=== PATIENT | female | born 1935 | race Caucasian/White ===

== ENCOUNTER → 2017-02-15 | Outpatient (CLI) | payer OTHER, MEDICARE | LOC: RAD 01:26 | DX: Z12.31 Encounter for screening mammogram for malignant neoplasm of breast (principal) ==

== ENCOUNTER → 2017-07-06 | Outpatient (CLI) | payer OTHER, MEDICARE | LOC: MRI 07:48 | DX: M75.101 Unspecified rotator cuff tear or rupture of right shoulder, not specified as traumatic (principal) ==

== ENCOUNTER → 2018-03-17 | Outpatient (CLI) | payer OTHER, MEDICARE | LOC: RAD 11:05 | DX: Z12.31 Encounter for screening mammogram for malignant neoplasm of breast (principal) ==

== ENCOUNTER → 2018-03-31 | Outpatient (CLI) | payer OTHER, MEDICARE | LOC: MRI 06:04 | DX: G31.9 Degenerative disease of nervous system, unspecified (principal); R26.89 Other abnormalities of gait and mobility; R41.3 Other amnesia ==

== ENCOUNTER → 2018-04-22 | Outpatient (CLI) | payer OTHER, MEDICARE | LOC: MRI 08:21 | DX: M47.27 Other spondylosis with radiculopathy, lumbosacral region (principal); M48.062 Spinal stenosis, lumbar region with neurogenic claudication ==

== ENCOUNTER 2021-03-27 11:31 | Inpatient (IN) | payer OTHER, MEDICARE ==
[~2021-03-27] VITALS: Ht 165.1 cm; Wt 58.5 kg
[~2021-03-27 11:31] MED LIST: ASPIR 8181 MG PO; IBANDRONATE SO150 MG PO; SYNTHROID88 MCG PO; VESICARE10 M1 PO; VITAMIN D2000 UNIT PO
[2021-03-27 11:32] VITALS: BP 130/74
[2021-03-27 12:02] LABS: URINE BILIRUBIN NEGATIVE (Negative); URINE BLOOD 2+ (Negative); URINE CLARITY CLEAR; URINE COLOR YELLOW; URINE GLUCOSE-RANDOM* NEGATIVE (Negative); URINE KETONES NEGATIVE (Negative); URINE NITRITE-REFLEX NEGATIVE (Negative); URINE PROTEIN (DIPSTICK) TRACE (Negative); URINE SPECIFIC GRAVITY <= 1.005 (1.005-1.035); URINE UROBILINOGEN 0.2 E.U./dl (0.2-1.0)
[2021-03-27 12:03] LABS: URINE LEUKOCYTES-REFLEX 3+ (Negative)
--- NOTE | 2021-03-27 12:18 | EKG ---
[address] [place] [address] ELECTROCARDIOGRAM REPORT Name: VILLA REYES [id number] Admission: 03/27/21 Attend Phys: Discharge: Date of : 33 Report #: [id number] [facility] ED Test Date: 2021-03-27 Test Time: 12:02:15 Pat Name: VILLA REYES Department: Room: Gender: F Halal Butcher: LIANA : 1935 Requested By: Luis Reed Order Number: [id number] MD: Jesus Plata Measurements Intervals [address] Rate: 72 P: -89 ME: 145 QRS: 22 QRSD: 99 T: 30 QT: 353 QTc: 387 Interpretive Statements Sinus rhythm Compared to ECG 12/02/2004 09:17:10 Myocardial infarct finding no longer present Electronically Signed On 03-27-2021 12:18:16 CDT by Jesus Plata [email or web address] <ELECTRONICALLY SIGNED> By: Jesus Plata MD, [facility] 03/27/21 1218 1202 1202 Jesus Plata MD, FACC /EPI
[2021-03-27 12:20] LABS: SQUAMOUS 4-10 Moderate /LPF (0-3)
[2021-03-27 12:21] LABS: BACTERIA-REFLEX >30 Many /HPF (None Seen); URINE RBC 3-10 Few /HPF (NONE SEEN); URINE WBC-REFLEX >25 Many /HPF (0-5); WBC CLUMPS Few (None Seen)
[2021-03-27 12:22] LABS: CASTS None Seen /LPF (None Seen); CRYSTALS None Seen /LPF (None Seen)
[2021-03-27 12:23] LABS: ABSOLUTE NEUTROPHILS 9.6 thou/uL (1.4-8.2); BASOPHILS 0.4 % (0.0-2.0); EOSINOPHILS 0.1 % (0.0-3.0); HEMATOCRIT 34.4 % (37.0-47.0); HEMOGLOBIN 11.5 gm/dL (12.0-15.0); MCH 30.4 pg (26.0-34.0); MCHC 33.4 g/dL (28.0-37.0); MONOCYTES 11.9 % (1.0-8.0); PLATELET COUNT 137 thou/uL (150-400); POLYS 81.6 % (36.0-66.0); RBC 3.78 mil/uL (4.20-5.00); RDW 13.9 % (10.5-14.5); WBC 11.8 thou/uL (4.0-11.0)
[2021-03-27 12:30] LABS: ANION GAP 8 mmol/L (7-16); BUN 13 mg/dL (7-18); CALCIUM 8.2 mg/dL (8.5-10.1); CHLORIDE 93 mmol/L (98-107); CO2 28 mmol/L (21-32); CREATININE 0.9 mg/dL (0.6-1.0); GLUCOSE 99 mg/dL (74-106); POTASSIUM 3.9 mmol/L (3.5-5.1); SODIUM 129 mmol/L (136-145)
--- NOTE | 2021-03-27 12:31 | NUR ---
DR. SARAH DO'D CODE STROKE AT 12:30
[2021-03-27 12:38] LABS: APTT 31.9 Seconds (24.5-32.8); INR 1.06; PROTIME 11.5 Seconds (10.5-12.1)
[2021-03-27 12:40] LABS: SGOT 24 U/L (15-37); SGPT 19 U/L (30-65); TOTAL BILIRUBIN 1.5 mg/dL (0.2-1.0); TOTAL PROTEIN 6.3 g/dL (6.4-8.2); TROPONIN-I <0.06 ng/mL (<0.06)
[2021-03-27 14:00] VITALS: BP 112/61
[2021-03-27 14:12] VITALS: BP 101/53
[2021-03-27 14:53] VITALS: BP 102/49
[2021-03-27] MEDS ORDERED: LIPITOR 20 MG T20 M1 PO (14:53)
[2021-03-27] MEDS ORDERED: LEVO-T25 MCG PO (14:54)
--- NOTE | 2021-03-27 14:54 | NUR ---
ASSESSMENT: CM REVIEWED CHART AND MET WITH PATIENT AT THE BEDSIDE AND HER DAUGHTER FOZIA WHO LIVES WITH PT. PT WAS ADMITTED DUE TO UTI AND INCREASED CONFUSION. PT HAS HX OF DEMENTIA AND NORMALLY ALERT AND ORIENTED X3 BUT MORE CONFUSED THEN USUSAL. PTS PCP IS DR. SUNG. PT HAS ABOUT 2 STEPS TO ENTER THE HOME AND DAUGHTER REPORTS THERE IS A CASE THERE FOR HER TO HOLD ON TO. PT NORMALLY USES A CANE FOR AMBULATION BUTH A WALKER IF NEEDED. PT HAS NO GRAB BAR OR SHOWER CHAIR AND NORMALLY WAS INDEPENDENT WITH ADLS. PT HAS HAD HH IN THE PAST BUT UNSURE THE AGENCY. PT HAS NEVER BEEN TO A A SNF. DAUGHTER IS ABLETO RUN ERRANDS OR ASSIST PATIENT WHENEVER NEEDED. PT IS CURRENTLY ON IV ANBX. CM WILL CONTINUE TO FOLLOW TO ASSIST NEEDED. PT/OT HAS BEEN ORDERED AND PENDING AT THIS TIME.
[2021-03-27 19:51] VITALS: BP 123/56
--- NOTE | 2021-03-27 19:56 | NUR ---
Patient arrived to room from ER, patient alert and orinted to self, bed alarm on, incontintent of bowl and bladder, on room air, tolerating diet well no nausea, vitals stable, and afbriele. Call light with in reach. Will continue to monitor.
--- NOTE | 2021-03-27 20:27 | NUR ---
Assumed care of pt at 1900. Pt a&ox2. Denies pain. Incontinent of b&b. IV antibiotics infusing. RA. Call light within reach. Frequent rounding. Fall precautions in place.
--- NOTE | 2021-03-28 04:25 | NUR ---
ASSUMED PT CARE AT 2300.PT WAS ASLEEP AT SHIFT CHANGE.PT ONCONT,PERICARE WITH EACH INCONTINENCE.FALL PRECAUTIONS IN PLACE.CALL LIGHT WITHIN REACH.
[2021-03-28 09:29] VITALS: BP 119/52
--- NOTE | 2021-03-28 11:02 | NUR ---
Discussed during los with hospitalist, dc sat or sun over the weekend with home health. Cm spoke with daughter jose via phone call, education on hh list [facility] choice, ok per daughter referral sent to [facility]. At dc bedside nurse to fax dc orders and summary to [facility], fax # [phone], phone # [phone].
--- NOTE | 2021-03-28 17:53 | NUR ---
patient alert and orinted x1, up with assist times one with gait belt, on room air, vitals stable, and afbrile. bed/chair alarm on, call light with in reach. Will continue to monitor.
[2021-03-28 18:04] VITALS: BP 111/57
[2021-03-28 20:00] VITALS: BP 112/42
--- NOTE | 2021-03-29 00:09 | NUR ---
PT ALERT/CONFUSED AND FORGETFUL.PT WAS IMPULSIVE MOST OF THE NIGHT.NEEDED CONSTANT REMINDER TO USE THE CALL LIGHT.UP WITH ASSIST X1/GB AND WALKER TO THE BSC.NO BM NOTED SO FAR.PT PULLED HER IV'S OUT,REF FOR IT TO BE REPLACED AT THIS TIME.WILL TRY AGAIN LATER.CALL LIGHT WITHIN REACH.
[2021-03-29 07:09] VITALS: BP 119/70
--- NOTE | 2021-03-29 10:49 | NUR ---
Assumed pt care at 7am.Assessment completed.vss.am meds given with breakfast and well tolerated.Dtr at bs visiting,updates given.Dr Barrett here,no new order noted but stated that pt will be dc home in am if stable.No verbal c/o at present.Fall bundle in place. Will continue to monitor.
[2021-03-29 16:00] VITALS: BP 98/56
[2021-03-29 20:14] VITALS: BP 116/73
--- NOTE | 2021-03-30 01:13 | NUR ---
PT ALERT/CONFUSED/IMPULSIVE AND FORGETFUL.NEEDS CONSTANT REMINDER TO USE CALL LIGHT.PT DENIED PAIN SO FAR.SMALL BM NOTED IMMEDIATELY AFTER SHIFT CHANGE.PT SLEEPING ON HER BED AT THIS TIME.CALL LIGHT WITHIN REACH.
[2021-03-30 08:42] VITALS: BP 121/58
--- NOTE | 2021-03-30 09:11 | NUR ---
Assumed care of pt at 0700. Pt a&o1-2. IV antibiotics infusing. Pt has been able to let staff know when she needs to use the bedside commode. Denies pain. Up with 1 assist with gait-belt. Possible d/c to home today with home health. Family at bedside. Call light within reach. Will continue to monitor.
[2021-03-30] MEDS ORDERED: COLACE100 MG PO (09:37)
[2021-03-30] MEDS ORDERED: KEFLEX750 MG PO (09:37)
[2021-03-30 10:33] VITALS: BP 121/58
== END 2021-03-30 12:40 | disposition home health service (06) | DRG 689 ==
LOC: ER 11:31 → EROBS 13:46 → 4S 13:46
PROVIDERS: Emergency Medicine; ADMIT Hospitalist; ATTEND Hospitalist
DX: N39.0 Urinary tract infection, site not specified (principal); G92 Toxic encephalopathy; F03.90 Unspecified dementia, unspecified severity, without behavioral disturbance, psychotic disturbance, mood disturbance, and anxiety; K59.00 Constipation, unspecified; B96.20 Unspecified Escherichia coli [E. coli] as the cause of diseases classified elsewhere; Z79.899 Other long term (current) drug therapy; Z79.82 Long term (current) use of aspirin; Z88.7 Allergy status to serum and vaccine
CPT/HCPCS: 10195